=== PATIENT | female | born 1965 ===

== ENCOUNTER 2023-12-14 10:04 | Day surgery (SDC) | payer OTHER ==
[~2023-12-14] VITALS: Ht 152.4 cm; Wt 65.3 kg
[2023-12-14] MEDS ORDERED: MIDAZOLAM 2 MG/2 ML VIAL ONE (15:20)
[2023-12-14] MEDS ORDERED: fentaNYL citrate 0.05 MG/ML VIAL ONE (15:21)
[2023-12-14] MEDS: MIDAZOLAM 2 MG/2 ML VIAL IVP SCH (15:34)
== END 2023-12-14 16:37 | disposition home or self-care (01) ==
LOC: MDS 10:04 → MMU 10:07 → MDS 16:37
PROVIDERS: ATTEND Internal Medicine Gastroenterology
DX: R10.13 Epigastric pain (principal); R10.30 Lower abdominal pain, unspecified; R14.0 Abdominal distension (gaseous); K21.9 Gastro-esophageal reflux disease without esophagitis; I10 Essential (primary) hypertension; E11.9 Type 2 diabetes mellitus without complications; E78.5 Hyperlipidemia, unspecified; Z90.710 Acquired absence of both cervix and uterus; Z98.891 History of uterine scar from previous surgery; Z79.899 Other long term (current) drug therapy; Z98.890 Other specified postprocedural states
CPT/HCPCS: 36415; 43239; 82948; 86677; J2250; J3010